=== PATIENT | male | born 1970 | race Caucasian/White ===

== ENCOUNTER 2023-09-18 09:06 | Emergency (ER) | payer OTHER, SELFPAY ==
[2023-09-18] VITALS (8 sets, daily range): BP systolic 129–163; BP diastolic 66–96; BMI 31.2
[2023-09-18 10:09] LABS: Glucose - Point of Care 374 mg/dl (70-99)
--- NOTE | 2023-09-18 11:19 | ED.GENMED ---
History of Present Illness
General
Chief Complaint: Blood Sugar Problem
Source: patient
Exam Limitations: none
Time Seen by Provider: 09/18/23 10:58
Nursing documentation reviewed up to this point in time: agreed with
Travel History
Have you had any contact with someone who has COVID-19?: No
Do you have any symptoms of coronavirus? Fever > 100 degrees, chills, cough, shortness of breath, sore throat, loss of taste or smell, muscle aches, or headache?: No
History of Present Illness
History of Present Illness:
53-year-old male with no significant past medical history states he quit smoking 2 years ago, has had a chronic cough since, also has sore throat, the cough became much worse over the past 2 weeks. He has also developed left lower abdominal pain
which feels better after he has a bowel movement. Denies constipation/diarrhea. Denies n/v. Patient went to urgent care earlier today due to the symptoms, a blood glucose Accu-Chek was done and was 459. They did a urinalysis which was positive
for +1 protein 3+ glucose and sent here for evaluation.
Patient admits to being very thirsty recently, also has been waking up frequently during the night over the past few weeks to urinate. Denies vision changes. Had 20 lb deliberate weight loss past 6 months.
Past History
Past History
ED Past Medical History: None
ED Past Surgical History: Orthopedic
Social History
Tobacco: Smoker
Alcohol: Occasional
Personal:
Living: with family
Family History
Family History: Negative Diabetes, Hypertension, Early CAD, Asthma or Cancer
Review of Systems
Review of Systems
Allergies reviewed?: Yes
All Other Systems: ROS reviewed and negative except as documented in HPI and ROS
Constitutional: Denies fever, fatigue or chills
EENT: Reports sore throat; Denies runny nose
Respiratory: Reports cough; Denies trouble breathing
Cardiac: Denies chest pain
ABD/GI: Reports abdominal pain (Left lower quadrant); Denies nausea, vomiting, diarrhea, constipated, bloody stools, black stools or anorexia
: Reports frequency; Denies dysuria, flank pain, difficulty voiding, urgency or bleeding
Musculoskeletal: Reports no symptoms
Skin: Reports no symptoms
Neurological: Reports no symptoms
Phy Exam
Physical Exam
Physical Exam:
GENERAL: No acute distress. A&Ox3.
CONSTITUTIONAL: Afebrile.
EYES: PERRL, conjunctivae normal
Neck: Supple
ENMT: moist mucus membranes, Pharynx nl, voice raspy
RESPIRATORY: Regular respirations, nonlabored, lungs clear.
CARDIOVASCULAR: Regular rate and rhythm, no murmurs, no rubs.
GI: Soft, obese, nontender, normal BS
MUSCULOSKELETAL: Moves with ease. Well perfused.
SKIN: Warm, dry, pink
PSYCH: Normal mood and affect. Well kept, interactive and appropriate
NEUROLOGIC: Awake, alert and oriented. No focal neurological deficits
Course
Orders/Labs/Results
Orders:
Orders
09/18/23 11:12
Add On- LAB Urgent
Comments:: in lab
Tests Added?: lipase
CMP [Comprehensive Metabolic Panel] Urgent
Complete Blood Count/With Diff Urgent
Glycohemoglobin (HgbA1c) Urgent
Lipase Urgent
Comment: ADD ON
09/18/23 11:17
COVID-19 Antigen Urgent
Source: Nasal Swab
09/18/23 11:22
CT Abd/pelvis W Iv Cont Urgent
Comment:
Reason For Exam: LLQ pain
CR Chest - 2 Views Urgent
Comment:
Reason For Exam: cough
09/18/23 11:23
0.9% Sodium Chloride 1000 ml [Nss] 1,000 ml IV BOLUS
09/18/23 11:35
Urinalysis Reflex To Culture Urgent
Date Specimen was Collected: 09/18/23
Time Specimen was Collected: 11:31
Urine Microscopic Reflex Cult Urgent
09/18/23 13:44
METFORMIN HCl [Glucophage] 500 mg PO NOW STA
09/18/23 13:55
Bedside Glucose- Treatment ONCE
Abnormal Lab Results
09/18/23 09/18/23 09/18/23
10:08 11:12 11:35
Sodium 133 L mmol/L
(135-145)
Creatinine 0.6 L mg/dL
(0.7-1.3)
Glucose 343 H mg/dl
(70-99)
Hemoglobin A1c 13.6 H %
(4.0-5.6)
ALT 88 H U/L
(0-50)
Urine Glucose 3+ A
(Negative)
Urine Albumin (Reflex) 1+ A
(Neg - Trace)
POC Glucose 374 H mg/dl
(70-99)
09/18/23
14:21
Sodium
Creatinine
Glucose
Hemoglobin A1c
ALT
Urine Glucose
Urine Albumin (Reflex)
POC Glucose 282 H mg/dl
(70-99)
09/18/23 11:12
09/18/23 11:12
Vital Signs
Initial and Last Documented VS:
Initial Vital Signs
Temp Pulse Resp BP Pulse Ox
98.4 F 91 18 158/95 97
09/18/23 09:14 09/18/23 09:14 09/18/23 09:14 09/18/23 09:14 09/18/23 09:14
Last Documented Vital Signs
Temp Pulse Resp BP Pulse Ox
98.4 F 91 18 163/87 95
09/18/23 09:14 09/18/23 09:14 09/18/23 09:14 09/18/23 16:00 09/18/23 16:00
Financial Processing Clerk consulted with Physician
Financial Processing Clerk consulted with physician?: Yes
Name of Physician Consulted: Shahana
MDM/Problems Addressed
Differential Diagnosis Includes:
Type 2 DM, stress hyperglycemia
Bronchitis, COVID
Constipation, diverticulitis, colitis
MDM/Problems Addressed:
53-year-old male with no significant past medical history states he quit smoking 2 years ago, has had a chronic cough since, also has sore throat, the cough became much worse over the past 2 weeks. He has also developed left lower abdominal pain
which feels better after he has a bowel movement. Denies constipation/diarrhea. Denies n/v. Patient went to urgent care earlier today due to the symptoms, a blood glucose Accu-Chek was done and was 459. They did a urinalysis which was positive
for +1 protein 3+ glucose and sent here for evaluation.
Patient admits to being very thirsty recently, also has been waking up frequently during the night over the past few weeks to urinate. Denies vision changes. Had 20 lb deliberate weight loss past 6 months.
11:43 AM
CBC normal
CMP: Glucose 343 otherwise unremarkable
Covid neg
U/A: Negative for infection, +3 glucose, +1 albumin
A1C 13.6
1:41 PM
Chest x-ray radiology report read: NAD
CT abdomen pelvis with IV contrast: Radiology report read: IMPRESSION:
1. No acute abnormalities within the abdomen or pelvis.
2. Hepatic steatosis.
3. Thickening versus nonspecific nodule within the left adrenal gland measuring 2.3 x 1.3 cm.
4. Grade 1 anterolisthesis at L5-S1 secondary to bilateral pars defects. patient
Copy of Ct report given to patient.
3:34 PM
After 1 L of IV normal saline repeat blood sugar is 282
Pt started on Metformin
Referred to PCP Hotline to help find PCP
Referred to Endocrinology Dr. Schultz. Texted her to try to get pt in sooner rather than later since he has no PCP at this point. She will have someone call him for appt.
Rx for Metformin sent to his pharmacy.
No significant cough noted during stay. Pt has had worsening and productive cough pat week, former smoker, will treat for bronchitis
Rx for ZPack and Tessalon Pereles sent to his pharmacy for bronchitis
*Critical Care Note
Total Time (30-74mins, 75-104mins- exclusive of procedures): Not Applicable
ED Attending Note
-
Portions of this chart may have been created with voice recognition software.� Occasional wrong word or��sound alike� substitutions may have occurred due to the inherent limitations of voice recognition software.
Discharge Plan
Departure
Patient Disposition: Home (Routine Discharge)
Date of Disposition: 09/18/23
Time of Disposition: 15:41
Patient with high blood pressure during this ER visit?: Yes
Condition: Fair
Discharge Problem:
Hyperglycemia, Acute bronchitis
Instructions: Acute Bronchitis, Adult (DC), Type 2 Diabetes (DC), High Blood Sugar, Adult ED
Prescriptions:
New
metformin 500 mg tablet
500 mg PO BID Qty: 60 0RF
azithromycin [Zithromax] 250 mg tablet
250 mg PO DAILY Qty: 6 0RF
Rx Instructions:
500 mg day 1, 250 mg day 2-5
benzonatate 100 mg capsule
100 mg PO Q4H PRN (Reason: Cough) Qty: 30 0RF
Referrals:
Stacey Schultz MD [Consulting Staff] - Next open appointment
NONE,* [Family Provider] -
Activity Restrictions/Additional Instructions:
As we discussed you are being treated for diabetes.
I sent a prescription to your pharmacy for Metformin 500 mg twice daily.
Someone from the Endocrinology office should call you for appointment. Call on Thursday if you don't hear from them by then.
Another person will call you about a primary care doctor.
Interventions
Interventions:
*Risk Screen - Suicide Last Done: 09/18/23 10:58
*General Assessment Last Done: 09/18/23 10:58
*Neglect/Abuse Screening Last Done: 09/18/23 10:58
ED- Fall Risk Assessment Last Done: 09/18/23 10:58
*ED COVID-19 Vaccine History Last Done: 09/18/23 10:58
*Nursing Disposition Last Done: 09/18/23 16:09
ED- Neurological Assessment Last Done: 09/18/23 10:58
Discharge Date and Time
Discharge Date/Time: 09/18/23 16:10
Print Language: KAZAKH
[2023-09-18 11:37] LABS: ALT (SGPT) 88 U/L (0-50); AST (SGOT) 49 U/L (17-59); Albumin 4.9 g/dl (3.5-5.0); Alkaline Phosphatase 88 U/L (38-126); Blood Urea Nitrogen 10 mg/dl (9-20); Calcium 9.7 mg/dl (8.4-10.2); Carbon Dioxide 24 mmol/L (22-30); Chloride 99 mmol/L (98-107); Estimated Creatinine Clearance > 125 ml/min; Glucose 343 mg/dl (70-99); Potassium 4.4 mmol/L (3.5-5.1); Sodium 133 mmol/L (135-145); Total Bilirubin 0.8 mg/dl (0.2-1.3); Total Protein 8.2 g/dl (6.3-8.2); eGFR > 60.00
[2023-09-18 11:38] LABS: % Basophils 0.5 % (0-2); % Eosinophils 0.8 % (0-6); % Immature Granulocytes 0.3 % (0-0.5); % Lymphocytes 31.8 % (20.5-51.1); % Monocytes 6.8 % (1.7-9.3); % Neutrophils 59.8 % (42.2-75.2); Absolute Eosinophils 0.1 10^3/uL (0-0.7); Absolute Lymphocytes 2.8 10^3/uL (1.2-3.4); Absolute Monocytes 0.6 10^3/uL (0.1-0.6); Absolute Neutrophils 5.3 10^3/uL (1.4-6.5); Hematocrit 45.6 % (39.0-52.0); Hemoglobin 16.6 g/dL (13.0-18.0); Mean Corp Hgb Conc. 36.4 g/dL (33.0-37.0); Mean Corpuscular Hgb 30.3 pg (27.0-31.0); Mean Corpuscular Volume 83.2 fL (80.0-94.0); Mean Platelet Volume 9.9 fL (7.4-10.4); Nucleated Red Blood Cells % 0 % (-); Platelet Count 166 10^3/uL (130-400); Red Blood Cell Count 5.48 10^6/uL (4.70-6.10); Red Cell Dist. Width 11.9 % (11.5-14.5); White Blood Cell Count 8.8 10^3/uL (4.8-10.8)
[2023-09-18 11:39] LABS: COVID-19 Antigen Negative (Negative)
[2023-09-18 11:53] LABS: Lipase 87 U/L (23-300)
[2023-09-18 12:21] LABS: Urine Albumin 1+ (Neg - Trace); Urine Bilirubin Negative (Negative); Urine Character Clear (Clear); Urine Color Yellow; Urine Glucose 3+ (Negative); Urine Ketone Negative (Negative); Urine Leukocyte Negative (Negative); Urine Nitrite Negative (Negative); Urine Occult Blood Negative (Negative); Urine Specific Gravity 1.015 (<1.030); Urine Urobilinogen Negative (Neg - 1+)
[2023-09-18] MEDS: NSS 1000 IV (12:24)
[2023-09-18 12:34] LABS: Urine Red Blood Cell 0-2 /HPF (0-2); Urine Squamous Cell 0-2 /LPF (Few); Urine White Cell None Seen /HPF (0-5)
[2023-09-18] MEDS: GLUCOPHAGE 500 MG PO (14:21)
[2023-09-18 14:22] LABS: Glucose - Point of Care 282 mg/dl (70-99)
[2023-09-18 14:46] LABS: Glycohemoglobin (HgbA1c) 13.6 % (4.0-5.6)
== END 2023-09-18 16:10 | disposition home or self-care (01) ==
LOC: EMR 09:06
PROVIDERS: Registered Nurse; EMERGENCY PHYSICIAN Emergency Medicine
DX: J20.9 Acute bronchitis, unspecified (principal); E11.65 Type 2 diabetes mellitus with hyperglycemia; Z11.52 Encounter for screening for COVID-19; Z87.891 Personal history of nicotine dependence
CPT/HCPCS: 99285; 96360; 71046; 74177; 80053; 81003; 81015; 82962; 83036; 83690; 85025; 87811; Q9967

== ENCOUNTER → 2023-11-05 13:46 | Outpatient (REF) | payer OTHER, SELFPAY | LOC: HWRAD 13:46 | PROVIDERS: ATTENDING PHYSICIAN Family Medicine | DX: Z87.891 Personal history of nicotine dependence (principal) | CPT/HCPCS: 71271 ==

== ENCOUNTER → 2024-01-29 06:21 | Day surgery (SDC) | payer OTHER, SELFPAY ==
[2024-01-29 07:16] LABS: Glucose - Point of Care 150 mg/dl (70-99)
== END ==
LOC: GI 06:21
PROVIDERS: ATTENDING PHYSICIAN Internal Medicine
DX: Z12.11 Encounter for screening for malignant neoplasm of colon (principal)
CPT/HCPCS: 45385; 45380; 88305; 82962

== ENCOUNTER 2024-05-12 06:39 | Day surgery (SDC) | payer OTHER, SELFPAY ==
[2024-04-27 14:00] VITALS: BMI 33.2
[2024-05-12] VITALS (7 sets, daily range): BP systolic 119–143; BP diastolic 59–85; BMI 33.2
--- NOTE | 2024-05-12 08:59 | HP.FOC2 ---
Focused History & Physical
Chief Complaint
HPI:
Chief Complaint:
Umbilical hernia repair
HPI / Indication for Planned Procedure: robotic umbilical hernia repair with mesh
Relevant Past Medical History: Negative
Relevant Social History: Negative
Relevant Family History: Negative
Relevant Past Surgical History: Negative
Review of Systems
Review of Pertinent Systems: All Systems Negative
Medication
See Medication form for detailed medications: Yes
Medication List (including Herbals & OTC):
Total Beets 650 mg PO DAILY 05/04/24
berberine chloride 500 mg capsule 1,000 mg PO DAILY 05/04/24
cinnamon bark 500 mg capsule (Cinnamon) 2,000 mg PO DAILY 05/04/24
multivitamin 1 tab PO DAILY 05/04/24
Medications Reviewed: Yes
Allergies and Reactions
Patient has Allergies: Yes
Noted Allergies and Reactions:
Allergy/AdvReac Type Severity Reaction Status Date / Time
Penicillins Allergy Severe Shortness Verified 05/04/24 13:10
of Breath
Pertinent Physical Exam
All Other Systems: Negative
Head/Neck: Normal
Diagnosis / Assessment
This is a 54-year-old male with a symptomatic enlarging umbilical hernia
Plan / Procedure
Will plan for a robotic umbilical hernia repair with mesh.
Anesthesia/Sedation to be done by Anesthesia Provider: Yes
--- NOTE | 2024-05-12 09:02 | W.SUR.PREOP ---
Pre-Operative Surgical Note
-
I have examined this patient prior to the performance of the scheduled procedure.
The patient's condition is unchanged from the time of the current History and
Physical and the patient is able to undergo the scheduled procedure.
[2024-05-12] MEDS: TYLENOL 1000 MG PO (09:06)
[2024-05-12 09:22] LABS: Glucose - Point of Care 171 mg/dl (70-99)
--- NOTE | 2024-05-12 11:58 | W.IMMPOSTOP ---
Surgical Immed Post Op Note
-
Primary Surgeon: Augustin Espinosa MD
Assisting Surgeon: None
Pre-op Diagnosis: Umbilical hernia
Post-op Diagnosis: Same
Procedure Performed:
1. Robotic umbilical hernia repair with mesh (KALPESH approach)
2. Bilateral KALPESH block
Anesthesia Type: General
Specimen / Cultures: None
Estimated Blood Loss: 3 cc
Complications: None
Operative Findings: 1.5 cm umbilical defect containing preperitoneal fat closed with a 0 V-Loc 180 suture in the transverse direction. 12 x 12 pocket created in the preperitoneal space and the hernia defect was reinforced with a 12 x 12 cm Bard
soft uncoated polypropylene mesh that was secured in 4 quadrants.
--- NOTE | 2024-05-12 12:05 | OR.RPT ---
Operative Report
Operative Report
Patient Name: Peter Diggs
: 1970
Date of Operation: 05/12/2024
Preoperative Diagnosis: Umbilical hernia
Postoperative Diagnosis: Same
Procedure(s):
1. Robotic umbilical hernia repair with mesh (KALPESH approach)
2. Bilateral KALPESH block
Surgeon(s):
Dr. Espinosa
Medical File Clerk(s):
AUDI Fairbanks
Anesthesia: General
Estimated Blood Loss: 3 cc
Urine Output: None
Drains/Lines/Implants:
12 x 12 cm round Bard soft mesh
Specimens:
None
HPI/Surgical Indications:
This is a 54-year-old male who was seen in my office for a symptomatic umbilical bulge and diagnosed with a reducible umbilical hernia. Risks/Benefits/Alternatives were discussed at length, and the patient agreed to proceed with surgery.
Operative Findings: 2 cm umbilical defect containing preperitoneal fat closed with a 0 V-Loc 180 suture in the transverse direction. 12 x 12 pocket created in the preperitoneal space and the hernia defect was reinforced with a 12 x 12 cm Bard soft
uncoated polypropylene mesh that was secured in 4 quadrants.
Procedure Description:
The patient was brought to the Operating Room and placed in the supine position with the arms tucked. IV antibiotics were infused and Venodyne stockings placed. Following uneventful induction of general endotracheal anesthesia, an orogastric tube
were placed. The abdomen was prepped and draped in the usual sterile fashion. The abdomen was entered using a Veress technique which required 1 pass, pneumoperitoneum to 15 mmHg was obtained without difficulty. An 8mm trochar was passed through
the abdominal wall roughly 20 cm laterally from the defect in the left upper quadrant, we then confirmed that no inadvertent injury was made while passing the trocar or Veress needle. We then placed two additional 8 mm ports in the left lower
quadrant. Bilateral tap blocks were performed. The robot was docked. We then introduced our prograsper through the inferior/left hand port and a monopolar scissors through the superior port. We then turned our attention to the hernia which had
no intra-abdominal contents. We then began taking a flap down roughly 6 cm away from the defect and roughly 12 cm in length taking care to stay in the pretransversalis plane. The preperitoneal fat was taken down off of the posterior rectus sheath
both superior and inferior to the hernia defect such that we were able to get our 'volcano sign'. We then worked on reducing the defect which contained preperitoneal fat and continued our dissection out laterally for an additional 6 to 7 cm. Once
our flap was created we introduced a ruler and a 0 V-Loc 180. The main hernia defect measured 2 cm. The pocket measured 13 x 13 cm. I had my assistant professor of art cut a 12 x 12 cm piece of Bard soft mesh marked with 0 Vicryl suture at the center, as I closed
the umbilical defect. The mesh was then sutured to the posterior rectus sheath in 4 quadrants with 2-0 vircyls to ensure good apposition. A 2-0 Monocryl was introduced which was used to close our flap. All sutures were removed. The robot was
undocked. The ports were removed under direct visualization and pneumoperitoneum was evacuated. The port sites were closed with 4-0 Monocryl followed by Dermabond. Counts were correct and overall, the patient tolerated the procedure well and was
taken to the Recovery Room postoperatively in stable condition.
I was the attending physician and performed the procedure with assistance from the [employer]ECT[employer] above. I was present for all portions of the case except for skin closure.
Augustin Espinosa MD
== END 2024-05-12 13:14 | disposition home or self-care (01) ==
LOC: SDS 06:39
PROVIDERS: ATTENDING PHYSICIAN Surgery; FAMILY PHYSICIAN Family Medicine
DX: K42.9 Umbilical hernia without obstruction or gangrene (principal)
CPT/HCPCS: 49591; 36415; 82962; 93005; C1781

== ENCOUNTER → 2024-11-09 06:44 | Outpatient (REF) | payer OTHER, SELFPAY | LOC: HWRAD 06:44 | PROVIDERS: ATTENDING PHYSICIAN Family Medicine | DX: Z87.891 Personal history of nicotine dependence (principal); R79.89 Other specified abnormal findings of blood chemistry | CPT/HCPCS: 71271; 76700 ==